=== PATIENT | female | born 1950 | race Caucasian/White ===

== ENCOUNTER 2017-07-07 08:55 | Outpatient (CLI) | payer MEDICARE ==
--- NOTE | 2017-07-07 10:09 | CT ---
CT OF THE THORAX UTILIZING LUNG CANCER SCREENING PROTOCOL: INDICATION: A 66-year-old female with a 45-year history of tobacco abuse. No history of lung cancer. The patien t does have a history of right-sided breast cancer status post lumpectomy. TECHNIQUE: Multiple low-dose CT images were obtained of the thorax utilizing lung cancer screening protocol. Ax ial and coronal reformatted images were constructed from the raw data. FINDINGS: No suspicious pulmonary nodule is identified. There are scattered paraseptal and centrilobular emphy sema. There are mild vascular calcifications involving the thoracic aorta. There is a calcified gra nuloma within the right hepatic lobe. The adrenal glands are normal-appearing. No acute osseous abn ormality is evident. IMPRESSION: 1. Lung RADS category 1 - negative. Recommend annual low-dose CT screening with CT evaluation. 2. Category S: Mild to moderate centrilobular and paraseptal emphysema. Vascular calcification of the aortic arch. 3. Findings of prior granulomatous disease. POS: [facility]
== END 2017-07-07 08:56 | disposition home or self-care (01) ==
LOC: CT 08:55
PROVIDERS: ATTEND Radiology Radiation Oncology
DX: F17.210 Nicotine dependence, cigarettes, uncomplicated (principal)
CPT/HCPCS: G0297

== ENCOUNTER 2017-12-23 07:26 | Outpatient (CLI) | payer MEDICARE ==
[2017-12-23] MEDS ORDERED: Iopamidol 370 76% 100 ML VIAL ONE (09:00)
--- NOTE | 2017-12-23 10:58 | CT ---
CT ABDOMEN WITH CONTRAST CT PELVIS WITH CONTRAST: DATE: 12/23/2017 TIME: 8:16 a.m. HISTORY: A 66-year-old female with a history of breast cancer who presents with generalized abdominal pain and weight loss. COMPARISON: None. TECHNIQUE: IV injection of iodinated contrast media: Isovue-370 70 mL Oral contrast media: Readi-Cat 2 900 mL FINDINGS: There is a tiny metallic or calcific density in the right lobe of the liver, in hepatic segment 8. T here is no evidence of metastatic lesion or cystic lesion in the liver. No portal vein thrombosis. Atherosclerosis of the abdominal aorta without aneurysm. The pancreas, the bilateral kidneys, the ad renals, and the spleen are normal. The appendix is not identified. No overt signs of appendicitis. No small bowel dilation. Normal urinary bladder. Absent uterus. Lung bases are clear. No pleural effusion, ascites, or pneumoperitoneum. No iliac chain, retroperitoneal, montrell hepatis, or mesenter ic lymphadenopathy. No destructive osseous lesion. Numerous diverticula throughout the descending c olon and sigmoid colon, without acute diverticulitis. IMPRESSION: 1. No active disease identified. 2. Status post hysterectomy. 3. Colonic diverticulosis. GINO Duran POS: [facility]
== END 2017-12-23 07:27 | disposition home or self-care (01) ==
LOC: SCSCT 07:26
PROVIDERS: ATTEND Internal Medicine Gastroenterology
DX: R10.9 Unspecified abdominal pain (principal); R63.4 Abnormal weight loss; K57.30 Diverticulosis of large intestine without perforation or abscess without bleeding; Z90.710 Acquired absence of both cervix and uterus
CPT/HCPCS: 74177; 82565

== ENCOUNTER 2018-01-19 10:56 | Outpatient (CLI) | payer MEDICARE | END 2018-01-19 10:57 | disposition home or self-care (01) | LOC: BICMAMMO 10:56 | PROVIDERS: ATTEND Radiology Radiation Oncology | DX: C50.911 Malignant neoplasm of unspecified site of right female breast (principal); Z80.3 Family history of malignant neoplasm of breast; Z85.3 Personal history of malignant neoplasm of breast; Z98.890 Other specified postprocedural states | CPT/HCPCS: 77066; G0279 ==

== ENCOUNTER 2019-01-21 09:01 | Outpatient (CLI) | payer MEDICARE ==
--- NOTE | 2019-01-21 09:52 | MMO ---
Bilateral MAMMO Bilat Diag [facility]. CLINICAL HISTORY: Patient is 68 years old and is seen for diagnostic exam. The patient has the following family history of breast cancer: paternal grandmother, malignant (generic). The patient has a history of malignant (generic) in the right breast in 2011. The patient has a history of right Lumpectomy in April, - malignant and right Ultrasound Guided Core Biopsy in February, - malignant. VIEWS: The views performed were: bilateral craniocaudal with tomosynthesis; bilateral mediolateral oblique with tomosynthesis; and bilateral mediolateral with tomosynthesis. FILMS COMPARED: The present examination has been compared to prior imaging studies performed at [facility] on 03/23/2014, 03/23/2015, 12/16/2016 and 01/19/2018. This study has been interpreted with the assistance of computer-aided detection. MAMMOGRAM FINDINGS: There are scattered fibroglandular densities. Finding 1: There are stable benign appearing calcifications seen in both breasts. There are no suspicious masses, calcifications or areas of architectural distortion. Finding 2: There is a stable post-surgical scar seen in the right breast. There are no suspicious masses, suspicious calcifications, or new areas of architectural distortion. IMPRESSION: THERE IS NO MAMMOGRAPHIC EVIDENCE OF MALIGNANCY. A ROUTINE FOLLOW-UP MAMMOGRAM IN 1 YEAR IS RECOMMENDED. THE RESULTS OF THIS EXAM WERE SENT TO THE PATIENT. ACR BI-RADS Category 2 - Benign finding MAMMOGRAPHY NOTE: 1. A negative mammogram report should not delay a biopsy if a dominant of clinically suspicious mass is present. 2. Approximately 10% to 15% of breast cancers are not detected by mammography. 3. Adenosis and dense breasts may obscure an underlying neoplasm. Reported by: IRENA HYLTON MD Electonically Signed: [id number]
== END 2019-01-21 09:02 | disposition home or self-care (01) ==
LOC: BICMAMMO 09:01
PROVIDERS: ATTEND Radiology Radiation Oncology
DX: C50.911 Malignant neoplasm of unspecified site of right female breast (principal)
CPT/HCPCS: 77066; G0279

== ENCOUNTER 2021-01-28 08:08 | Outpatient (CLI) | payer MEDICARE | END 2021-01-28 08:09 | disposition home or self-care (01) | LOC: BICMAMMO 08:08 | PROVIDERS: ATTEND Radiology Radiation Oncology | DX: Z12.31 Encounter for screening mammogram for malignant neoplasm of breast (principal); Z85.3 Personal history of malignant neoplasm of breast; Z98.890 Other specified postprocedural states | CPT/HCPCS: 77063; 77067 ==

== ENCOUNTER 2021-03-04 07:41 | Outpatient (CLI) | payer MEDICARE | END 2021-03-04 07:42 | disposition home or self-care (01) | LOC: BICCT 07:41 | PROVIDERS: ATTEND Radiology Radiation Oncology | DX: Z12.2 Encounter for screening for malignant neoplasm of respiratory organs (principal); Z87.891 Personal history of nicotine dependence | CPT/HCPCS: 71271 ==

== ENCOUNTER 2022-02-03 10:57 | Outpatient (CLI) | payer MEDICARE | END 2022-02-03 10:58 | disposition home or self-care (01) | LOC: BICMAMMO 10:57 | PROVIDERS: ATTEND Radiology Radiation Oncology | DX: Z12.31 Encounter for screening mammogram for malignant neoplasm of breast (principal); Z98.890 Other specified postprocedural states; Z85.3 Personal history of malignant neoplasm of breast; Z80.3 Family history of malignant neoplasm of breast | CPT/HCPCS: 77063; 77067 ==

== ENCOUNTER 2022-03-06 09:46 | Outpatient (CLI) | payer MEDICARE | END 2022-03-06 09:47 | disposition home or self-care (01) | LOC: BICCT 09:46 | PROVIDERS: ATTEND Radiology Radiation Oncology | DX: Z12.2 Encounter for screening for malignant neoplasm of respiratory organs (principal); Z87.891 Personal history of nicotine dependence | CPT/HCPCS: 71271 ==

== ENCOUNTER 2023-03-18 07:33 | Outpatient (CLI) | payer MEDICARE | END 2023-03-18 07:34 | disposition home or self-care (01) | LOC: BICCT 07:33 | PROVIDERS: ATTEND Radiology Radiation Oncology | DX: Z12.31 Encounter for screening mammogram for malignant neoplasm of breast (principal); Z12.2 Encounter for screening for malignant neoplasm of respiratory organs; Z87.891 Personal history of nicotine dependence; J98.4 Other disorders of lung; J43.9 Emphysema, unspecified; Z80.3 Family history of malignant neoplasm of breast; Z85.3 Personal history of malignant neoplasm of breast; Z91.89 Other specified personal risk factors, not elsewhere classified; Z98.890 Other specified postprocedural states | CPT/HCPCS: 71271; 77063; 77067 ==

== ENCOUNTER 2024-04-05 10:21 | Outpatient (CLI) | payer MEDICARE | END 2024-04-05 10:22 | disposition home or self-care (01) | LOC: BICMAMMO 10:21 | PROVIDERS: ATTEND Radiology Radiation Oncology | DX: Z12.31 Encounter for screening mammogram for malignant neoplasm of breast (principal); Z12.2 Encounter for screening for malignant neoplasm of respiratory organs; F17.211 Nicotine dependence, cigarettes, in remission; Z80.3 Family history of malignant neoplasm of breast; Z85.3 Personal history of malignant neoplasm of breast; Z91.89 Other specified personal risk factors, not elsewhere classified; Z98.890 Other specified postprocedural states | CPT/HCPCS: 71271; 77063; 77067 ==

== ENCOUNTER 2025-04-12 13:48 | Outpatient (CLI) | payer MEDICARE | END 2025-04-12 13:49 | disposition home or self-care (01) | LOC: BICCT 13:48 | PROVIDERS: ATTEND Radiology Radiation Oncology | DX: Z12.2 Encounter for screening for malignant neoplasm of respiratory organs (principal); Z87.891 Personal history of nicotine dependence | CPT/HCPCS: 71271 ==

== ENCOUNTER 2025-04-27 10:43 | Outpatient (CLI) | payer MEDICARE, OTHER | END 2025-04-27 10:44 | disposition home or self-care (01) | LOC: BICMAMMO 10:43 | PROVIDERS: ATTEND Radiology Radiation Oncology | DX: Z12.31 Encounter for screening mammogram for malignant neoplasm of breast (principal); Z17.0 Estrogen receptor positive status [ER+]; Z80.3 Family history of malignant neoplasm of breast; Z98.890 Other specified postprocedural states; Z91.89 Other specified personal risk factors, not elsewhere classified; Z85.3 Personal history of malignant neoplasm of breast | CPT/HCPCS: 77063; 77067 ==